=== PATIENT | female | born 1995 | race Caucasian/White ===

== ENCOUNTER 2018-01-22 12:00 | Emergency (ER) | payer BC ==
[2018-01-22 13:09] VITALS: BP 108/65
--- NOTE | 2018-01-22 13:35 | UC ---
Lower Extremity/Ankle HPI - HPI Summary HPI Summary: The patient is a 22-year-old female with a 2-3 day history of right midfoot pain. Her foot has started to swell. The onset of her symptoms were a few days after hiking in the [place]. - History of Current Complaint Chief Complaint: UCLowerExtremity Stated Complaint: RIGHT FOOT PAIN Time Seen by Provider: 01/22/18 13:28 Hx Obtained From: Patient Hx Last Menstrual Period: Mirena IUD Onset/Duration: Sudden Onset, Lasting Days Severity Initially: Mild Severity Currently: Moderate Pain Intensity: 5 Pain Scale Used: 0-10 Numeric Aggravating Factor(s): Standing, Ambulation Alleviating Factor(s): Rest Able to Bear Weight: Yes - Allergies/Home Medications Allergies/Adverse Reactions: Allergies Allergy/AdvReac Type Severity Reaction Status Date / Time diazepam [From Valium] Allergy Hallucinati Verified 01/22/18 13:06 ons procaine [From Novocain] Allergy Rash Verified 01/22/18 13:06 codeine AdvReac See Comment Verified 01/22/18 13:06 Home Medications: Home Medications Ibuprofen TAB* [Advil TAB*] 400 mg PO Q6H PRN 01/22/18 [History Confirmed ] Levonorgestrel (Iud) [Mirena IUD] 20 mcg IU ONCE 01/22/18 [History Confirmed 03/01] PMH/Surg Hx/FS Hx/Imm Hx Previously Healthy: Yes - Surgical History Surgical History: None - Family History Known Family History: Positive: Hypertension - Social History Alcohol Use: None Substance Use Type: None Smoking Status (MU): Never Smoked Tobacco - Immunization History Most Recent Influenza Vaccination: not in awhile Review of Systems Constitutional: Negative Skin: Negative Eyes: Negative ENT: Negative Respiratory: Negative Cardiovascular: Negative Gastrointestinal: Negative Genitourinary: Negative Motor: Negative Neurovascular: Negative Musculoskeletal: Arthralgia Neurological: Negative Psychological: Negative All Other Systems Reviewed And Are Negative: Yes Physical Exam Triage Information Reviewed: Yes Appearance: Well-Appearing, No Pain Distress, Well-Nourished Vital Signs: Initial Vital Signs Temp 98 F 01/22/18 13:02 Pulse 68 01/22/18 13:02 Resp 16 01/22/18 13:02 BP 108/65 01/22/18 13:02 Pulse Ox 100 10/11/18 13:02 Eye Exam: Normal Eyes: Positive: Conjunctiva Clear ENT: Positive: Hearing grossly normal. Negative: Nasal congestion, Nasal drainage, Trismus, Muffled voice, Hoarse voice Neck: Positive: Supple Respiratory: Positive: Lungs clear, Normal breath sounds, No respiratory distress Cardiovascular: Positive: RRR, No Murmur Musculoskeletal: Positive: Other: - see image Neurological: Positive: Alert Psychological Exam: Normal Skin Exam: Normal Diagnostics - Radiology No standard instances Xray Interpretation: No Acute Changes Radiology Interpretation Completed By: Radiologist Lower Extremity Course/Dx - Differential Dx/Diagnosis Provider Diagnoses: right foot sprain Discharge - Sign-Out/Discharge Documenting (check all that apply): Patient Departure All imaging exams completed and their final reports reviewed: Yes - Discharge Plan Condition: Stable Disposition: HOME Patient Education Materials: Foot Sprain (ED) Referrals: [facility] [Outside] - 5 Days Additional Instructions: post op shoe advil or aleve ice twice daily - Billing Disposition and Condition Condition: STABLE Disposition: Home Images Feet (Multiple View): 1 - tender/swollen
--- NOTE | 2018-01-22 14:07 | RAD ---
Indication: Mid foot pain. 3 views of the right foot demonstrates no definite fracture. Some calcification is noted in the ventral aspect of the head of the third metatarsal. No fractures identified. IMPRESSION: Soft tissue calcifications adjacent to the third metatarsal head. No definite fracture is noted.
== END 2018-01-22 14:25 | disposition home or self-care (01) ==
LOC: UCCORT 12:00
DX: S93.601A Unspecified sprain of right foot, initial encounter (principal); X50.3XXA Overexertion from repetitive movements, initial encounter; Y93.31 Activity, mountain climbing, rock climbing and wall climbing; Y92.89 Other specified places as the place of occurrence of the external cause; Z88.5 Allergy status to narcotic agent; Z88.4 Allergy status to anesthetic agent; Z88.8 Allergy status to other drugs, medicaments and biological substances
CPT/HCPCS: 99212; G0463

== ENCOUNTER 2018-10-06 22:04 | Emergency (ER) | payer BC ==
--- OUTSIDE RECORDS SUMMARY | 2018-10-06 22:37 | XMS REPORT | Continuity of Care Document ---
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 Tobacco Use Start: Unknown End: Former Cigarette Smoker Unknown Tobacco Use Start: Unknown Smoked for 2 years Smoking Status Reviewed: 09/18/18 Smoked for 2 years ETOH Use Denies alcohol use Tobacco Use Start: Unknown End: Patient is a former smoker Unknown Recreational Drug Use Never Used Drugs Exercise Type/Frequency Exercises regularly Allergies, Adverse Reactions, Alerts Active Allergies Reaction Severity Comments Date Novocaine 08/10/2018 Codeine 08/10/2018 Valium 08/10/2018 Medications Active Medications SIG Qnty Indications Ordering Provider Date Ranitidine HCL take one tablet Unknown 150mg by mouth at Tablets bedtime Vital Signs Date Vital Result Comment 09/18/2018 1:41pm Height 66 inches 5'6" Weight 117.00 lb Heart Rate 72 /min BP Systolic Sitting 106 mmHg Lue regular cuff BP Diastolic Sitting 66 mmHg Lue regular cuff Respiratory Rate 16 /min O2 % BldC Oximetry 99 % BMI (Body Mass Index) 18.9 kg/m2 08/10/2018 7:47am Height 66 inches 5'6" Weight 118.00 lb Heart Rate 60 /min BP Systolic Sitting 96 mmHg left upper arm regular cuff BP Diastolic Sitting 52 mmHg left upper arm regular cuff Respiratory Rate 12 /min O2 % BldC Oximetry 98 % BMI (Body Mass Index) 19.0 kg/m2 Procedures Date Code Description Status 08/31/2018 05426 Polysomnography Sleep Staging 4+ Parameters Completed Encounters Type Date Location Provider Dx Diagnosis Office Visit 08/10/2018 Pulmonology And Gypsy Hunter, G47.9 Sleep disorder, 7:30a [facility] unspecified Shower Room Attendant G47.52 REM sleep behavior disorder Plan of Treatment 09/18/2018 - Keri Craft NPG47.52 REM sleep behavior disorderReferral: Mahendra Sargent M.D., NeurologyRecommendations:Make sure your sleep environment is safe. Make any modification necessary including moving breakableobjects from your sleeping area Avoid sharp objects and keep firearms locked Keep doors and windows locked REM Behavior Disorder is sometimes linked with other neurological conditions, so I will send a referral to neurology for further [id number] Other fatigue
--- NOTE | 2018-10-07 01:02 | ED ---
Respiratory - HPI Summary HPI Summary: A 23 y/o F with pert PMHx: asthma presents to ED c/o discomfort in her lung after inhaling a small piece of bread onset approx 2029. She states she can feel it in her lung. Denies fever, CP, dyspnea. - History of Current Complaint Chief Complaint: EDForeignBodyEsophag Stated Complaint: CHEST PAIN PER PT Time Seen by Provider: 10/06/18 23:55 Hx Obtained From: Patient Onset/Duration: Sudden Onset, Lasting Hours, Still Present Timing: Constant Initial Severity: Moderate Current Severity: Moderate Pain Intensity: 4 Aggravating Factor(s): Nothing Alleviating Factor(s): Nothing Associated Signs and Symptoms: Negative - Allergy/Home Medications Allergies/Adverse Reactions: Allergies Allergy/AdvReac Type Severity Reaction Status Date / Time diazepam [From Valium] Allergy Hallucinati Verified 10/06/18 23:52 ons procaine [From Novocain] Allergy Rash Verified 10/06/18 23:52 codeine AdvReac See Comment Verified 10/06/18 23:52 PMH/Surg Hx/FS Hx/Imm Hx Previously Healthy: No Endocrine/Hematology History: Denies: Hx Diabetes Cardiovascular History: Denies: Hx Hypertension, Hx Pacemaker/ICD Respiratory History: Reports: Hx Asthma History: Denies: Hx Renal Disease Sensory History: Denies: Hx Hearing Aid Psychiatric History: Denies: Hx Panic Disorder Infectious Disease History: No Infectious Disease History: Denies: Traveled Outside the [place] in Last 30 Days - Family History Known Family History: Positive: Hypertension - Social History Occupation: Employed Full-time Lives: Alone Alcohol Use: None Hx Substance Use: No Substance Use Type: Reports: None Hx Tobacco Use: No Smoking Status (MU): Never Smoked Tobacco Review of Systems Negative: Fever Negative: Chest Pain Respiratory: Other - pos: lung discomfort. neg: dyspnea. All Other Systems Reviewed And Are Negative: Yes Physical Exam - Summary Physical Exam Summary: Constitutional: Well-developed, Well-nourished, Alert. (-) Distressed Skin: Warm, Dry HENT: Normocephalic; Atraumatic Eyes: Conjunctiva normal Neck: Musculoskeletal ROM normal neck. (-) JVD, (-) Stridor, (-) Tracheal deviation Cardio: Rhythm regular, rate normal, Heart sounds normal; Intact distal pulses; The pedal pulses are 2+ and symmetric. Radial pulses are 2+ and symmetric. (-) Murmur Pulmonary/Chest wall: Effort normal. (-) Respiratory distress, (-) Wheezes, (-) Rales Abd: Soft, (-) tenderness, (-) Distension, (-) Guarding, (-) Rebound Musculoskeletal: (-) Edema Lymph: (-) Cervical adenopathy Neuro: Alert, Oriented x3 Psych: Mood and affect Normal Triage Information Reviewed: Yes Vital Signs On Initial Exam: Initial Vitals Temp Pulse Resp BP Pulse Ox 99 F 71 18 121/83 98 10/06/18 22:11 10/06/18 22:11 10/06/18 22:11 10/06/18 22:11 10/06/18 22:11 Vital Signs Reviewed: Yes Diagnostics - Vital Signs Vital Signs Temp Pulse Resp BP Pulse Ox 10/06/18 23:53 99 F 72 16 110/62 100 10/06/18 22:11 99 F 71 18 121/83 98 - Laboratory Lab Statement: Any lab studies that have been ordered have been reviewed, and results considered in the medical decision making process. - Radiology CXR Radiology Interpretation Completed By: ED Physician Summary of Radiographic Findings: NAD. - CT Chest CT Interpretation Completed By: Radiologist Summary of CT Findings: IMPRESSION: No acute findings. ED provider has reviewed this report. Re-Evaluation - Re-Evaluation 1 Re-Evaluation Time: 02:41 Change: Unchanged Comment: Updating patient on consult with pulmonology and plans for CT. Disposition - Course Course Of Treatment: Patient is a healthy 23 y/o F presenting to ED after aspirating a small piece of bread at 2030. She denies fever, CP, dyspnea. PE is unremarkable. CXR shows NAD. Chest CT has no acute findings. Will discharge patient home to f/u with Dr. Hunter, pulmonology. - Diagnoses Provider Diagnoses: Aspiration into airway - Physician Notifications Discussed Care Of Patient With: Gypsy Hunter - pulmonology Time Discussed With Above Provider: 02:28 Instructed by Provider To: Other - Recommends non-constrast scan of lungs. Discharge - Sign-Out/Discharge Documenting (check all that apply): Patient Departure - D/C Patient Received Moderate/Deep Sedation with Procedure: No - Discharge Plan Condition: Stable Disposition: HOME Patient Education Materials: Pneumonitis (ED), Aspiration Pneumonia (DC) Print Language: GREEK Forms: *Work Release Referrals: Gypsy Hunter MD [Medical Doctor] - If Needed Shweta Peres MD [Primary Care Provider] - - Attestation Statements Document Initiated by Scribe: Yes Documenting Scribe: Maria Esther Jacinto Provider For Whom Scribe is Documenting (Include Credential): Dr. Milly Costa MD Scribe Attestation: I, Maria Esther Jacinto, scribed for Dr. Milly Costa MD on at 0649. Status of Scribe Document: Ready
[2018-10-07 05:05] VITALS: BP 100/60
== END 2018-10-07 05:06 | disposition home or self-care (01) ==
LOC: ED 22:04
DX: T17.920A Food in respiratory tract, part unspecified causing asphyxiation, initial encounter (principal); Z88.6 Allergy status to analgesic agent
CPT/HCPCS: 71046; 71250; 99282